=== PATIENT | female | born 1985 | race Caucasian/White ===

== ENCOUNTER 2018-11-25 16:52 | Inpatient (IN) | payer BC, SELFPAY ==
[2018-11-25 15:37] VITALS: BMI 39.2
[2018-11-25 16:22] LABS: Hematocrit 37.5 % (37-47); Hemoglobin 12.8 g/dl (12.0-15.0); Mean Corp Hgb Conc 34.1 g/gl (32-36); Mean Corpuscular Hgb 29.9 pg (27.0-32.0); Mean Corpuscular Volume 87.6 fL (81-99); Mean Platelet Vol. 10.9 fl (6.2-12.0); Platelet Count 156 K/mm3 (150-450); RBC Distribution Width CV 14.2 % (11.6-14.6); RBC Distribution Width SD 45.5 fl (35.1-43.9); Red Blood Count 4.28 M/mm3 (4.2-5.4); White Blood Count 7.8 K/mm3 (4.4-11.0)
[2018-11-25 16:24] LABS: Scan Indicated on CBC? Y/N NO
[2018-11-25 16:25] LABS: Protein, Urine (Random) 20.7 mg/dL (<11.9); Protein:Creat Ratio 113 mg/g CRE (0-200)
[2018-11-25 16:36] LABS: Partial Thromboplast Time 26.8 Seconds (24.1-36.2); Prothrombin Time (Protime)PT. 12.9 SECONDS (11.7-14.9)
[2018-11-25 16:56] LABS: AST(SGOT) 18 U/L (15-37); Alanine Aminotransfer ALT/SGPT 12 U/L (13-56); Creatinine, Serum 0.69 mg/dL (0.55-1.02); EST Glomerular Filtration Rate 104 mL/min (>60); Est Glom Filt Rate - Afr Amer 126 mL/min (>60); Estimated Creatinine Clearance 101.08 ml/min; Uric Acid 3.8 mg/dL (2.6-6.0)
[2018-11-25] MEDS: 0.9% Normal Saline 100 ML IV.SOLN. INTRA-UTER (19:47)
--- NOTE | 2018-11-25 19:54 | HP.PCM_ITS ---
- Problem List (1) Gestational hypertension Status: Acute History Date of Admission: 11/25/18 Final CARITO: 12/07/18 Final CARITO Source: US <20 weeks Gestational age: 38 Weeks and 2 Days History of this : This is a 33 year-old, G 1P0 at 38.2 weeks gestation was seen in the office today noted to have an elevated blood pressure true BP was 138/95. Looking over her record she does have some mildly elevated blood pressures which could be a sign of chronic hypertension however she does not have that diagnosis. Patient was sent to labor and delivery for prolonged monitoring, preeclamptic labs. Blood pressures were still elevated and at this time decision for induction of labor was made. Patient is 1 cm thick and a -3 station. Has headaches, blurry vision, epigastric pain. Allergies acetaminophen [From Tylenol] Adverse Reaction (Verified 11/25/18 15:41) Other ibuprofen [From Motrin] Adverse Reaction (Verified 11/25/18 15:41) Other naproxen [From Aleve] Adverse Reaction (Verified 11/25/18 15:41) Other Home Medications: Home Medications Cod Liver Oil 1 ea PO 11/25/18 Ferrous Gluconate 324 mg PO 11/25/18 Vit No.130/Iron/Folic [ Tablet] 11/25/18 Smoking Status: Never smoker Alcohol: None Number of Fetus(es): 1 Heart Tracin mod jacky + accels, no decels TOCO Analysis: occasional ctx History Past Pregnancies: Past Pregnancies Delivery Date Name GA/Weeks Outcome Route Weight Infant Gender Labor Length Anesthesia Delivery Location Provider FOB Labs: GBS neg, Rub imm, HIV non reactive, HEP B neg, syphilis neg, A+ Expected Delivery Method: Spontaneous Vaginal Review of Systems Eyes: Denies: Blurred vision HEENT: Denies: Head Aches Cardiovascular: Denies: Chest Pain Gastrointestinal: Denies: Abdominal Pain Physical Exam General: Alert, Oriented x3 Abdomen: Soft, Non Tender, Gravid Neurological: Cranial nerves II-XII grossly intact, - - DTR +2. Negative for: Clonus [employer]: Normal external genitalia Estimated gestational size: Appropriate for gestational size Presentation: Cephalic Cervix Dilation (cm): 1 Station: -3 Effacement (%): 50 Assessment/Plan All Active Problems Gestational hypertension (Acute) This is a 33 year-old, G 1P0 at 38.2 weeks gestational hypertension here for labor induction Admit to labor and delivery Monitor heart rate and toco Cytotec with a Moffett bulb Epidural requested for pain control Once her blood pressure will initiate hypertensive protocol if indicated. Attempted Moffett placement however unable to feed the catheter through the cervical eyes. Membranes intact will continue Cytotec overnight and start Pitocin if indicated.
--- NOTE | 2018-11-25 22:06 | PCM.PN.BLA ---
Progress Note Seen at bedside resting comfortably minimal contractions. Reattempt at placement of Moffett catheter transcervically was unsuccessful. Cervix is 1/70%/ -3 . Not able to feed the catheter balloon past the external cervical os. Patient tolerated well. At this time we will continue Cytotec nursing will recheck in approximately 4 hours if making cervical change will start with Pitocin.
[2018-11-25] MEDS: Acetaminophen 325 MG Tablet PO (23:47)
[2018-11-26] MEDS: Lactated Ringers 1,000 ML 50 ML IV ×4 (03:44→14:26)
[2018-11-26] MEDS: 0.9% Saline Lock 10 ML Syringe IV ×2 (03:44→19:35)
[2018-11-26] MEDS: Nalbuphine 10 MG/ML Ampul IV (05:12)
[2018-11-26] MEDS: fentaNYL-bupivacaine (epidural) 100 ML BAG EPIDURAL ×2 (06:45→11:17)
[2018-11-26] MEDS: Oxytocin 30 units/NS 500 ml 30 UNITS/500 ML IV.SOLN IV (07:45)
--- NOTE | 2018-11-26 08:33 | PCM.PN.BLA ---
Progress Note S: Patient comfortable wit epidural O: cvx - 4-5/90/-1 AROM scant clear fluid. FSE & IUPC placed. fhts 120 with minimal to moderate variability, accels tocos ctxs not tracing well A&P: continue pitocin induction Gestational htn - BP's normal
[2018-11-26] MEDS: Oxytocin 30 units/NS 500 ml 30 UNITS/500 ML IV.SOLN 334 UNITS IV (16:40)
--- NOTE | 2018-11-26 17:07 | PCM.OPRPT ---
Vaginal Delivery Maternal Presentation: Medically Indicated Induction Method of Induction: Pitocin, Amniotomy, Cytotec Medical Reason for Induction: Gestational Hypertension Amniotic Membrane Rupture Type: Artificial Amniotic Fluid Description: Clear Final CARITO: 12/07/18 Gestational age: 38 Weeks and 3 Days Date of Procedure: 11/26/18 Pre-Operative Diagnosis: Gestational hypertension Post-Operative Diagnosis: Same Surgery/ Procedure Performed: Spontaneous Vaginal Delivery Type of Anesthesia: Epidural Description of Procedure: Patient prepped & draped in stirrups when c/c/+3. She pushed and delivered the head. The head was gently guided to allow delivery of anterior and posterior shoulders. No excess traction placed on the head. Body delivered & infant placed on maternal abdomen. 3VC clamped & cut in delayed fashion. Placenta delivered with gentle traction. Good uterine tone obtained. Presentation: GUNNAR Placental Delivery Description: Expressed Placenta Disposition: [facility] Cord Vessel Description: 3 Vessels Cord Entanglement: None Drain: Moffett to straight drain Estimated Blood Loss: 350ml Infant A gender: Female (1 minute): 8 (5 minute): 9 Episiotomy Description: None Laceration: Vaginal Extension/lac - repaired with 3-0 vicryl Medications given after delivery: IV Pitocin Complications: None
[2018-11-26] MEDS: Oxytocin 30 units/NS 500 ml 30 UNITS/500 ML IV.SOLN 167 UNITS IV (17:10)
[2018-11-26 19:35] VITALS: BP 144/84; PULSE 88; RESP 18; TEMP 37.2
[2018-11-26] MEDS: Acetaminophen 500 MG Tablet 1000 MG PO (20:39)
[2018-11-26 23:55] VITALS: BP 145/89; PULSE 99; RESP 18; TEMP 36.8
[2018-11-27 03:30] VITALS: BP 145/83; PULSE 86; RESP 18; TEMP 36.9
--- NOTE | 2018-11-27 07:26 | PCM.PN.OB ---
Patient Problems: Active and Suspected Problems Gestational hypertension (Acute) Subjective: No complaints - Physical Exam General: Alert, Oriented x3 Abdomen: Soft, Non Tender, Non-Distended - ff mid & below umb Extremities: No Calf Tenderness Vital Signs Temp Pulse Resp BP 98.5 F 86 18 145/83 H 11/27/18 03:30 11/27/18 03:30 11/27/18 03:30 11/27/18 03:30 Oxygen Delivery Method Room Air Weight: 228 lb 13.437 oz Body Mass Index (BMI) 39.2 Intake and Output for Last 24 Hours 11/25/18 11/26/18 11/27/18 23:59 23:59 23:59 Intake Total 3172 / 3172 Output Total 1442 / 1442 Balance 1730 / 1730 Medical Necessity - Tobacco Use Smoking Status: Never smoker Assessment/Plan All Active Problems Gestational hypertension (Acute) PPD#1 Routine care Heme - HDS, cbc pending. Page with results. Gestational hypertension - BP's 140's/80's. Will monitor.
[2018-11-27 07:48] LABS: Hematocrit 35.5 % (37-47); Hemoglobin 11.8 g/dl (12.0-15.0); Mean Corp Hgb Conc 33.2 g/gl (32-36); Mean Corpuscular Hgb 29.3 pg (27.0-32.0); Mean Corpuscular Volume 88.1 fL (81-99); Mean Platelet Vol. 11.3 fl (6.2-12.0); Platelet Count 147 K/mm3 (150-450); RBC Distribution Width CV 14.5 % (11.6-14.6); RBC Distribution Width SD 45.7 fl (35.1-43.9); Red Blood Count 4.03 M/mm3 (4.2-5.4); White Blood Count 12.2 K/mm3 (4.4-11.0)
[2018-11-27 07:49] LABS: Scan Indicated on CBC? Y/N NO
[2018-11-27 08:00] VITALS: BP 137/84; PULSE 83; RESP 14; TEMP 37.1
[2018-11-27 12:30] VITALS: BP 136/83; PULSE 89; RESP 16; TEMP 36.4
[2018-11-27 16:22] VITALS: BP 144/88; PULSE 89; RESP 16; TEMP 36.8
[2018-11-27 20:15] VITALS: BP 132/83; PULSE 88; RESP 16; TEMP 37.1
[2018-11-28 02:00] VITALS: BP 140/88; PULSE 83; RESP 18; TEMP 36.3
--- NOTE | 2018-11-28 06:00 | PCM.PN.OB ---
Patient Problems: Active and Suspected Problems Gestational hypertension (Acute) Subjective: Pain well controlled, average lochia. Small bowel movement. Urinating without difficulty. - Physical Exam General: Alert, Cooperative, No apparent distress Vital Signs Temp Pulse Resp BP 97.4 F L 83 18 140/88 H 11/28/18 02:00 11/28/18 02:00 11/28/18 02:00 11/28/18 02:00 Oxygen Delivery Method Room Air Weight: 103.8 kg Body Mass Index (BMI) 39.2 Intake and Output for Last 24 Hours 11/26/18 11/27/18 11/28/18 23:59 23:59 23:59 Intake Total 3172 / 3172 Output Total 1442 / 1442 Balance 1730 / 1730 Laboratory Tests Past 24 Hrs 11/27/18 11/27/18 06:05 07:30 WBC 12.2 H Cancelled Corrected WBC Cancelled RBC 4.03 L Cancelled Hgb 11.8 L Cancelled Hct 35.5 L Cancelled MCV 88.1 Cancelled MCH 29.3 Cancelled MCHC 33.2 Cancelled RDW 14.5 Cancelled RDW Differential 45.7 H Cancelled Plt Count 147 L Cancelled MPV 11.[address] Path Review Cancelled Medical Necessity - Tobacco Use Smoking Status: Never smoker Assessment/Plan All Active Problems Gestational hypertension (Acute) day #2 status post vaginal delivery Doing well. Working on breast-feeding. Likely discharge home later today. Routine prescriptions. Follow-up in the office within 1 week for blood pressure check. Call or return for any symptoms of preeclampsia.
--- NOTE | 2018-11-28 06:03 | DCINST_ITS ---
Discharge Diet: No Restrictions Discharge Activity: Return to Normal Activity, May not drive while taking narcotic pain medications., May Shower May resume sexual activity in: 4-6 weeks Additional Activity Instructions:: Nothing in the vagina for 4-6 weeks. You may return to work/school in 6 weeks. Call your doctor if your incision/area has: Continuous Slow Oozing, Sudden Increased Bleeding, Increased Pain/ Swelling, Increased Redness, Foul Smelling Discharge Additional Instructions: If you experience any of the following, contact your healthcare provider. * Bleeding that soaks a pad every hour for 2 hours * Fever 100.4 or higher * Unrelieved incision or abdominal pain * Swelling, redness, discharge or bleeding from your incision or episiotomy site * Your incision begins to separate * Problems urinating (including inability to urinate or burning while urinating). * Visual changes * Severe headache * Flu-like symptoms * Pain or redness in one of both of your breasts * Pain, warmth, tenderness or swelling in your legs, especially the calf area * Frequent nausea and vomiting * Symptoms of depression or anxiety If you experience any of the following, call 911 or go to the nearest Emergency Room. * Chest pain * Problems breathing * Seizure activity * Partial or complete paralysis of a body part, slurred speech, weakness or drooping of the face, or a sudden inability to walk or hold your balance Allergies/Adverse Reactions: Allergies acetaminophen [From Tylenol] Adverse Reaction (Verified 11/25/18 15:41) Other ibuprofen [From Motrin] Adverse Reaction (Verified 11/25/18 15:41) Other naproxen [From Aleve] Adverse Reaction (Verified 11/25/18 15:41) Other Medications to take at Discharge Ferrous Gluconate 324 mg PO 11/25/18 Vit No.130/Iron/Folic [ Tablet] 11/25/18 Ibuprofen [Motrin] 600 mg PO Q6H PRN #60 tab 11/28/18 The following prescriptions were given: Ibuprofen [Motrin] 600 mg PO Q6H PRN #60 tab PRN Reason: Pain Transmission Status: Pending to [id number] Please Follow Up With: Maria Guadalupe Mendez - [phone] When: Call to schedule follow-up in your providers office in 1 week and at 6 weeks. Primary Care Physician: Berry Venegas MD [Primary Care Provider] - Test Results: Test results from this visit will be discussed in further detail at your follow- up appointment, if applicable.
[2018-11-28 08:40] VITALS: BP 130/80; PULSE 96; RESP 18; TEMP 36.8
[2018-11-28 14:25] VITALS: BP 134/80; PULSE 80; RESP 18; TEMP 36.9
== END 2018-11-28 14:35 | disposition home or self-care (01) | DRG 807 ==
LOC: WPOUT 16:53 → WP 17:05
PROVIDERS: Obstetrics & Gynecology; Admitting Provider Obstetrics & Gynecology; Family Provider Family Medicine; PCP Family Medicine; Referring Provider Obstetrics & Gynecology; Visit Provider Obstetrics & Gynecology
DX: O13.4 Gestational [pregnancy-induced] hypertension without significant proteinuria, complicating childbirth (principal); Z37.0 Single live birth; Z3A.38 38 weeks gestation of pregnancy; O70.0 First degree perineal laceration during delivery
CPT/HCPCS: 59025; 59050; 82565; 82570; 84156; 84450; 84460; 84550; 85027; 85610; 85730; 86850; 86900; 99218; J7120; A4216; G0378

== ENCOUNTER 2020-09-07 19:38 | Inpatient (IN) | payer OTHER, SELFPAY ==
[2020-09-07] VITALS (7 sets, daily range): BP systolic 130–142; BP diastolic 80–83; PULSE 87–99; TEMP 36.2–36.4; O2SAT 97–98; BMI 41.1
[2020-09-07] MEDS: 0.9% Saline Lock 10 ML Syringe IV (20:35)
[2020-09-07 20:56] LABS: Absolute Lymphocyte Count 1.43 X10^3/uL (0.83-4.51); Absolute Neutrophil Count 5.8 X10^3/uL (2.0-7.7); Basophil# 0.03 X10^3/uL; Basophil% 0.4 % (0-1); Eosinophil# 0.04 X10^3/uL; Eosinophils% 0.5 % (0-5); Hematocrit 35.6 % (37-47); Hemoglobin 11.7 g/dL (12.0-15.0); Lymphocyte # 1.43 X10^3/ul (0.83-4.51); Mean Corp Hgb Conc 32.9 g/dL (32-36); Mean Corpuscular Hgb 29.5 pg (27.0-32.0); Mean Corpuscular Volume 89.9 fL (81-99); Mean Platelet Vol. 10.7 fl (6.2-12.0); Monocyte# 0.49 X10^3/uL; Monocyte% 6.2 % (0-10); NRBC Flagged by Analyzer 0 % (0-5); Neutrophil # 5.83 X10^3/uL (2.7-7.7); Neutrophil % 73.4 % (47-70); Platelet Count 157 K/mm3 (150-450); RBC Distribution Width CV 13.8 % (11.6-14.6); RBC Distribution Width SD 45.4 fl (35.1-43.9); Red Blood Count 3.96 M/mm3 (4.2-5.4); White Blood Count 7.9 K/mm3 (4.4-11.0)
--- NOTE | 2020-09-07 21:16 | PCM.HP.OB ---
- Problem List (1) 36 to 37 weeks gestation of Status: Acute (2) Gestational hypertension Status: Acute History Date of Admission: 09/07/20 Final CARITO: 09/29/20 Final CARITO Source: US <20 weeks Gestational age: 36 Weeks and 6 Days History of this : This is a 35 year-old, G [2], P [1], at 36.9 weeks gestational age for induction of labor for gestational hypertension. BP in office 140/92. Patient denies any headache, vision changes or RUQ pain. Allergies acetaminophen [From Tylenol] Adverse Reaction (Verified 11/25/18 15:41) Other ibuprofen [From Motrin] Adverse Reaction (Verified 11/25/18 15:41) Other naproxen [From Aleve] Adverse Reaction (Verified 11/25/18 15:41) Other Home Medications: Home Medications Ferrous Gluconate 324 mg PO 11/25/18 Vit No.130/Iron/Folic [ Tablet] 11/25/18 Aspirin 81 mg PO DAILY 09/07/20 Smoking Status: Never smoker Number of Fetus(es): 1 NST - FHR Rate Baby A Baseline: 145 Variability:: Moderate Accelerations:: 15 x 15 Decelerations:: None NST Reactive:: Yes FHR Category:: Category I Uterine Activity:: irritability History Past Pregnancies: Past Pregnancies Delivery Date Name GA/ Weeks Outcome Route Wt Infant Sex Labor Length Anesthesia Delivery Location Provider FOB Labs: A+ Rubella- immune HB- neg HC- neg RPR- NR HIV- NR GC/CH- neg GBS negative [id number] Expected Infant Delivery Method: Spontaneous Vaginal Review of Systems Constitutional: Denies: Chills, Fever, Weight Change HEENT: Denies: Head Aches, Sinus Congestion, Sinus Drainage Cardiovascular: Denies: Chest Pain, Palpitations Respiratory: Denies: Cough, Shortness of breath at rest, Sputum production Gastrointestinal: Denies: Abdominal Pain, Nausea, Vomiting Genitourinary: Denies: Dysuria Musculoskeletal: Denies: Joint Pain, Joint Tenderness Skin: Denies: Rash, Wounds Physical Exam Vitals: Vital Signs Temp Pulse BP Pulse Ox 97.5 F L 98 130/81 H 97 09/07/20 20:21 09/07/20 20:23 09/07/20 20:23 09/07/20 20:22 General: Alert, Oriented x3, Cooperative HEENT: Atraumatic Cardiovascular: Regular rate Lungs: Normal air movement Abdomen: Soft, Non Tender, Gravid Neurological: Cranial nerves II-XII grossly intact Assessment/Plan All Active Problems Gestational hypertension (Acute) 36 to 37 weeks gestation of (Acute) This is a 35 year-old, G [2], P [1], at 36.9 weeks gestational age for induction of labor for gestational hypertension. Admit to labor and delivery Routine labs IV fluids per policy Start Cytotec 25 mcg PO every 4 hours- CE prior to each dose BP every hour Hypertension protocol if needed Dr. Perea notified of admission and is collaborating physician
[2020-09-07] MEDS: miSOPROStol 25 MCG TABLET PO (21:30)
[2020-09-08] VITALS (55 sets, daily range): BP systolic 99–166; BP diastolic 58–98; PULSE 86–109; TEMP 36.1–37.4; O2SAT 96–100
[2020-09-08] MEDS: miSOPROStol 25 MCG TABLET PO ×2 (01:38→05:45)
--- NOTE | 2020-09-08 08:43 | PCM.PN.BLA ---
Progress Note S: Patient feels some ctxs O: cvx - 2/50/-3 AROM clear fluid fhts 130 with mod variability, accels tocos Q3-4 min A&P: start pitocin at 9:30am gestational hypertension - BP's reviewed STROKE Vital Signs/Narrative: Vital Signs Temp Pulse BP Pulse Ox 09/08/20 07:24 95 129/86 H 09/08/20 06:39 97.4 F L 95 135/81 H 98 09/08/20 05:37 96 133/92 H
[2020-09-08] MEDS: Oxytocin 30 units/NS 500 ml 30 UNITS/500 ML IV.SOLN IV (09:52)
[2020-09-08] MEDS: Lactated Ringers 1,000 ML 50 ML IV ×2 (09:52→12:26)
[2020-09-08] MEDS: Lactated Ringers 500 ML 999 ML IV (15:48)
[2020-09-08] MEDS: fentaNYL-bupivacaine (epidural) 100 ML BAG EPIDURAL ×2 (16:35→21:25)
[2020-09-08] MEDS: Lactated Ringers 1,000 ML 200 ML IV ×2 (17:22→22:02)
[2020-09-08] MEDS: Amnioinfusion- 0.9% NS 1,000 ML IV.SOLN. 100 ML INTRA-UTER (23:48)
[2020-09-09] VITALS (26 sets, daily range): BP systolic 114–141; BP diastolic 62–101; PULSE 90–116; RESP 16–18; TEMP 36.3–37.3; O2SAT 97–100
[2020-09-09] MEDS: Oxytocin 30 units/NS 500 ml 30 UNITS/500 ML IV.SOLN 334 UNITS IV (00:16)
--- NOTE | 2020-09-09 00:41 | PCM.OPRPT ---
Vaginal Delivery Maternal Presentation: Medically Indicated Induction Method of Induction: Cervidil, Pitocin, Amniotomy Medical Reason for Induction: Gestational Hypertension Amniotic Membrane Rupture Type: Artificial Amniotic Fluid Description: Clear Final CARITO: 09/29/20 Gestational age: 37 Weeks and 1 Days Date of Procedure: 09/09/20 Pre-Operative Diagnosis: Gestational hypertension Post-Operative Diagnosis: Same Surgery/ Procedure Performed: Spontaneous Vaginal Delivery Type of Anesthesia: Epidural Description of Procedure: Patient prepped & draped in stirrups when C/C/0. She pushed well to deliver the head. Shoulders & body delivered easily through moderately tight nuchal cord. placed on maternal abdomen where 3VC clamped & cut in delayed fashion. Placenta delivered with gentle traction & good uterine tone obtained. Presentation: Vertex - direct OA Placental Delivery Description: Expressed Placenta Disposition: [facility] Cord Vessel Description: 3 Vessels Nuchal Cord Compression: With compression Cord Entanglement: Around neck x 1, tight - moderately as able to deliver through Estimated Blood Loss: 250ml A gender: Female - Cervantes Billie (1 minute): 8 (5 minute): 8 Episiotomy Description: None Laceration: 1st degree - vaginal - repaired with 3-0 vicryl Medications given after delivery: IV Pitocin Complications: None
--- NOTE | 2020-09-09 08:04 | PCM.PN.OB ---
Patient Problems: Active and Suspected Problems Gestational hypertension (Acute) 36 to 37 weeks gestation of (Acute) Subjective: Denies complaints - Physical Exam Vitals/I&O's: Vital Signs Temp Pulse Resp BP Pulse Ox 97.8 F 104 H 16 134/92 H 97 09/09/20 07:47 09/09/20 07:47 09/09/20 07:47 09/09/20 07:47 09/09/20 04:30 Oxygen Delivery Method Room Air Weight: 239 lb 4 oz Body Mass Index (BMI) 41.1 Intake and Output for Last 24 Hours 09/07/20 09/08/20 09/09/20 23:59 23:59 23:59 Intake Total 1929.99 / 1929.99 1081.67 / 1081.67 Output Total 600 / 600 875 / 875 Balance 1329.99 / 1329.99 206.67 / 206.67 General: Alert, Oriented x3 Abdomen: Soft - ff mid & below umb, Non Tender, Non-Distended Extremities: No Calf Tenderness Microbiology Past 72 Hours 09/07/20 20:45 Mucosa - Nose SARS-CoV-2 Antigen (Rapid) - Final Current Medications Acetaminophen (Acetaminophen 500 Mg Tablet) 1,000 mg PO Q8H PRN PRN PRN Reason: Pain Score 1-3 Bisacodyl (Bisacodyl 10 Mg Suppository) 10 mg RC UD PRN PRN Reason: If no BM Dibucaine (Dibucaine 30 Gm Tube) 1 applic TOPICAL TID PRN PRN; Protocol PRN Reason: Discomfort Hydrocortisone (Hydrocortisone 2.5% Crm) 1 applic TOPICAL TID PRN PRN; Protocol PRN Reason: Discomfort Ibuprofen (Ibuprofen 600 Mg Tablet) 600 mg PO Q6H PRN PRN PRN Reason: Pain Score 1-3 Methylergonovine Maleate (Methylergonovine 0.2 Mg/Ml Ampul) 0.2 mg IM X1 PRN PRN Reason: Excess bleeding/uterine atony Ondansetron HCl (Ondansetron 4 Mg/2 Ml Vial) 4 mg IV Q4H PRN PRN PRN Reason: Nausea Oxycodone HCl (Oxycodone 5 Mg Tablet) 5 - 10 mg PO Q4H PRN PRN PRN Reason: Pain Score 4-10 Senna/Docusate Sodium (Senna/Docusate Sodium 1 Tablet) 1 - 2 tablet PO DAILY PRN PRN PRN Reason: Constipation Simethicone (Simethicone 80 Mg Tablet) 80 mg PO PCHS PRN PRN Reason: Indigestion/Stomach pain Sodium Chloride (0.9% Saline Lock 10 Ml Syringe) 5 - 15 ml IV UD PRN PRN Reason: SALINE FLUSH Medical Necessity - Tobacco Use Smoking Status: Never smoker Assessment/Plan All Active Problems Gestational hypertension (Acute) 36 to 37 weeks gestation of (Acute) PPD#0 Routine care Gestational hypertension - BP's reviewed & overall normal
[2020-09-10] VITALS (8 sets, daily range): BP systolic 127–135; BP diastolic 75–86; PULSE 82–90; RESP 16–18; TEMP 36.2–36.6
--- NOTE | 2020-09-10 12:10 | PCM.PN.OB ---
Patient Problems: Active and Suspected Problems Gestational hypertension (Acute) 36 to 37 weeks gestation of (Acute) Subjective: No complaints - Physical Exam Vitals/I&O's: Vital Signs Temp Pulse Resp BP Pulse Ox 97.2 F L 88 16 129/82 H 97 09/10/20 07:32 09/10/20 07:32 09/10/20 07:32 09/10/20 07:32 09/09/20 04:30 Oxygen Delivery Method Room Air Weight: 239 lb 4 oz Body Mass Index (BMI) 41.1 Intake and Output for Last 24 Hours 09/08/20 09/09/20 09/10/20 23:59 23:59 23:59 Intake Total 1929.99 / 1929.99 1081.67 / 1081.67 Output Total 600 / 600 875 / 875 Balance 1329.99 / 1329.99 206.67 / 206.67 General: Alert, Oriented x3 Abdomen: Soft, Non Tender, Non-Distended - ff mid & below umb Extremities: No Calf Tenderness Microbiology Past 72 Hours 09/07/20 20:45 Mucosa - Nose SARS-CoV-2 Antigen (Rapid) - Final Current Medications Acetaminophen (Acetaminophen 500 Mg Tablet) 1,000 mg PO Q8H PRN PRN PRN Reason: Pain Score 1-3 Bisacodyl (Bisacodyl 10 Mg Suppository) 10 mg RC UD PRN PRN Reason: If no BM Dibucaine (Dibucaine 30 Gm Tube) 1 applic TOPICAL TID PRN PRN; Protocol PRN Reason: Discomfort Hydrocortisone (Hydrocortisone 2.5% Crm) 1 applic TOPICAL TID PRN PRN; Protocol PRN Reason: Discomfort Ibuprofen (Ibuprofen 600 Mg Tablet) 600 mg PO Q6H PRN PRN PRN Reason: Pain Score 1-3 Methylergonovine Maleate (Methylergonovine 0.2 Mg/Ml Ampul) 0.2 mg IM X1 PRN PRN Reason: Excess bleeding/uterine atony Ondansetron HCl (Ondansetron 4 Mg/2 Ml Vial) 4 mg IV Q4H PRN PRN PRN Reason: Nausea Oxycodone HCl (Oxycodone 5 Mg Tablet) 5 - 10 mg PO Q4H PRN PRN PRN Reason: Pain Score 4-10 Senna/Docusate Sodium (Senna/Docusate Sodium 1 Tablet) 1 - 2 tablet PO DAILY PRN PRN PRN Reason: Constipation Simethicone (Simethicone 80 Mg Tablet) 80 mg PO PCHS PRN PRN Reason: Indigestion/Stomach pain Sodium Chloride (0.9% Saline Lock 10 Ml Syringe) 5 - 15 ml IV UD PRN PRN Reason: SALINE FLUSH Medical Necessity - Tobacco Use Smoking Status: Never smoker Assessment/Plan All Active Problems Gestational hypertension (Acute) 36 to 37 weeks gestation of (Acute) PPD#1 D/c home Gestational hypertension - BP's normal to mildly elevated times. Patient will check BP home & f/u in office later this week. Reviewed BP & preE precautions.
--- NOTE | 2020-09-10 12:12 | DCINST_ITS ---
Discharge Diet: No Restrictions Discharge Activity: May Drive, May Shower May resume sexual activity in: 6 weeks Additional Instructions: If you experience any of the following, contact your healthcare provider. * Bleeding that soaks a pad every hour for 2 hours * Fever 100.4 or higher * Unrelieved incision or abdominal pain * Swelling, redness, discharge or bleeding from your incision or episiotomy site * Your incision begins to separate * Problems urinating (including inability to urinate or burning while urinating). * Visual changes * Severe headache * Flu-like symptoms * Pain or redness in one of both of your breasts * Pain, warmth, tenderness or swelling in your legs, especially the calf area * Frequent nausea and vomiting * Symptoms of depression or anxiety If you experience any of the following, call 911 or go to the nearest Emergency Room. * Chest pain * Problems breathing * Seizure activity * Partial or complete paralysis of a body part, slurred speech, weakness or drooping of the face, or a sudden inability to walk or hold your balance Allergies/Adverse Reactions: Allergies acetaminophen [From Tylenol] Adverse Reaction (Verified 09/07/20 21:43) Other erythemia nodosum ibuprofen [From Motrin] Adverse Reaction (Verified 09/07/20 21:43) Other erythemia nodosum naproxen [From Aleve] Adverse Reaction (Verified 09/07/20 21:43) Other erythemia nodosum Medications to take at Discharge Vit No.130/Iron/Folic [ Tablet] 1 tab PO DAILY 11/25/18 Acetaminophen [Tylenol] 1,000 mg PO Q8H PRN PRN tablet 09/10/20 Ibuprofen [Motrin] 600 mg PO Q6H PRN PRN tablet 09/10/20 Please Follow Up With: Maria Guadalupe Mendez MD When: within 1 week Primary Care Physician: Berry Venegas MD [Primary Care Provider] - Test Results: Test results from this visit will be discussed in further detail at your follow- up appointment, if applicable.
--- NOTE | 2020-09-10 12:12 | PCM.DCVAG ---
Discharge Diet: No Restrictions Discharge Activity: May Drive, May Shower May resume sexual activity in: 6 weeks Additional Instructions: If you experience any of the following, contact your healthcare provider. Bleeding that soaks a pad every hour for 2 hours Fever 100.4 or higher Unrelieved incision or abdominal pain Swelling, redness, discharge or bleeding from your incision or episiotomy site Your incision begins to separate Problems urinating (including inability to urinate or burning while urinating). Visual changes Severe headache Flu-like symptoms Pain or redness in one of both of your breasts Pain, warmth, tenderness or swelling in your legs, especially the calf area Frequent nausea and vomiting Symptoms of depression or anxiety If you experience any of the following, call 911 or go to the nearest Emergency Room. Chest pain Problems breathing Seizure activity Partial or complete paralysis of a body part, slurred speech, weakness or drooping of the face, or a sudden inability to walk or hold your balance Allergies/Adverse Reactions: Allergies acetaminophen [From Tylenol] Adverse Reaction (Verified 09/07/20 21:43) Other erythemia nodosum ibuprofen [From Motrin] Adverse Reaction (Verified 09/07/20 21:43) Other erythemia nodosum naproxen [From Aleve] Adverse Reaction (Verified 09/07/20 21:43) Other erythemia nodosum Medications to take at Discharge Vit No.130/Iron/Folic [ Tablet] 1 tab PO DAILY 11/25/18 Acetaminophen [Tylenol] 1,000 mg PO Q8H PRN PRN tablet 09/10/20 Ibuprofen [Motrin] 600 mg PO Q6H PRN PRN tablet 09/10/20 Please Follow Up With: Maria Guadalupe Mendez MD When: within 1 week Primary Care Physician: Berry Venegas MD [Primary Care Provider] - Test Results: Test results from this visit will be discussed in further detail at your follow-up appointment, if applicable.
== END 2020-09-10 14:40 | disposition home or self-care (01) | DRG 807 ==
PROVIDERS: Admitting Provider Advanced Practice Midwife; PCP Family Medicine; Visit Provider Obstetrics & Gynecology
DX: O13.4 Gestational [pregnancy-induced] hypertension without significant proteinuria, complicating childbirth (principal); Z37.0 Single live birth; Z3A.37 37 weeks gestation of pregnancy; O69.1XX0 Labor and delivery complicated by cord around neck, with compression, not applicable or unspecified; O70.0 First degree perineal laceration during delivery
CPT/HCPCS: 59025; 59050; 85025; 86850; 86900; 86901; 87426; 99218; J7030; J7120; A4216; G0378

== ENCOUNTER 2020-11-02 12:56 | Emergency (ER) | payer OTHER, SELFPAY ==
[2020-09-07 20:57] VITALS: BMI 41.1
[2020-11-02 12:57] VITALS: BP 155/106; PULSE 71; RESP 14; TEMP 36.6; O2SAT 100; BMI 35.9
--- NOTE | 2020-11-02 13:26 | US_ITS ---
STUDY: ABDOMINAL ULTRASOUND - RIGHT UPPER QUADRANT REASON FOR VISIT: Female, 35 years old PAIN RUQ TO MIDLINE ABDOMEN PAIN TECHNIQUE: Ultrasound evaluation of the right upper quadrant was performed with real-time and static maravilla-scale imaging. TECHNICAL QUALITY: Adequate. COMPARISON: None. FINDINGS: Liver: The liver measures 17.2 cm. There is increased echogenicity consistent with fatty infiltration. The bile ducts are within normal limits. There is hepatic color flow. The direction of portal flow is hepatopetal. There is no demonstrated mass lesion. Gallbladder: Normal distended gallbladder. The gallbladder wall measures 2.2 mm. There is a negative sonographic Andre''s sign. There is pericholecystic fluid. There are multiple echogenic structures within the gallbladder, consistent with multiple gallstones. Common Bile Duct (C.B.D.): The common bile duct measures 4.7 mm. A small stone is seen within the common bile duct. Pancreas: Normal size of the head, body and tail of the pancreas. There is normal echogenicity of the pancreas. There is no demonstrated pancreatic mass or cyst. Right Kidney: Normal size of the right kidney. The right kidney measures 10.2 cm x 5.9 cm x 4.5 cm. Normal renal cortex. The right cortex measures 1.2 cm. There is no demonstrated renal mass or cyst. There is no right hydronephrosis. US/Gallbladder IMPRESSION: Multiple gallstones. Minimal amount of pericholecystic fluid. Small calculus suspected in the common bile duct. Fatty infiltration of the liver. Electronically Signed: Toro Patrick MD at 15:05 EDT , Service support ,
--- NOTE | 2020-11-02 13:28 | RAD_ITS ---
STUDY: X-RAY CHEST REASON FOR EXAM: Female, 35 years old. Chest pain TECHNIQUE: Single AP portable view of the chest. COMPARISON: None. FINDINGS: EKG electrodes are seen. The lungs are clear and expanded. There is no demonstrated pleural abnormality. Normal size heart. Normal mediastinum and hemanth. Normal visualized pulmonary arteries. Normal visualized aortic arch and descending thoracic aorta. Normal visualized thoracic spine. Normal visualized ribs, clavicles, and shoulders. There is no demonstrated abnormality of the visualized soft tissue structures of the upper abdomen. RAD/Chest 1 View (Portable) IMPRESSION: Normal x-ray examination of the chest. Electronically Signed: Toro Patrick MD at 14:44 EDT , Service support ,
--- NOTE | 2020-11-02 13:28 | EDS_ITS ---
HPI HPI - GI History of Present Illness Chief Complaint: Abd Pain Informant: patient Abdominal Pain/Flank Pain Onset: Days (4) Context: Gradual Onset Timing: Intermittent, Lasts (today has lasted 8-10 hrs without letting up) and Waxes and wanes Quality: Aching Location: RUQ (Radiating up mid chest and into mid upper back) Current Severity: Severe Maximum Severity: Severe Worsened by: - (Lying on right side otherwise unchanged by anything) Relieved by: Nothing Nausea/Vomiting/Emesis GI Symptom: Positive for Nausea; Negative for Vomiting Diarrhea/Melena/Hematochezia GI Symptom: Negative for Diarrhea, Melena and Hematochezia Associated Symptoms Associated Symptoms: Negative for Dysuria, Frequency, Hematuria and Urgency Narrative Narrative: Patient had similar episode of abdominal pain several days ago saw her PCP, gallbladder issues were suspected so an ultrasound was ordered but is not able to be obtained for another week and now the patient is having recurrent symptoms that are persistent all morning along with nausea, no vomiting or jaundice/itching. No fever/chills. No melena, no urinary symptoms. Pain radiates into her thorax no dyspnea, palpitations, near syncope. No recent cough or fevers/chills. No history of Covid, she has not been vaccinated. She has a 7-week-old baby girl and has been breast-feeding her. [facility] Medical History (Updated 11/02/20 @ 16:[address] Neno Neri MD) Gestational [-induced] hypertension without significant proteinuria, unspecified trimester Hx of lymphadenopathy no medical history Home Medications vit no.[id number] 1 tab PO DAILY 11/25/18 [History Last Taken 09/07/20 08:00] hydrocodone-acetaminophen 1 tab PO Q6H PRN 2 Days #12 tab 11/02/20 [Rx Last Taken Unknown] Allergy/AdvReac Type Severity Reaction Status Date / Time acetaminophen [From Tylenol] Allergy Other Verified 11/02/20 13:56 ibuprofen [From Motrin] Allergy Other Verified 11/02/20 13:56 naproxen [From Aleve] Allergy Other Verified 11/02/20 13:56 Social History Smoking Status: Never smoker ROS ROS ED Constitutional Constitutional ED: Denies chills or fever(s) Eyes Eyes: Denies change in vision or diplopia ENT ENT ED: Denies rhinorrhea or sore throat Cardiovascular Cardiovascular: Reports chest pain; Denies palpitations Respiratory/Chest Respiratory/Chest: Denies cough or dyspnea Gastrointestinal Gastrointestinal: Reports as per HPI, abdominal pain and nausea; Denies diarrhea or vomiting Genitourinary Genitourinary ED: Denies dysuria or hematuria Musculoskeletal Musculoskeletal: Reports as per HPI and back pain; Denies neck pain Integumentary Denies abscess or rash Neurologic Neurologic: Denies headache(s), paresthesias or weakness Psychiatric Psychiatric: Denies anxiety or suicidal thoughts EXAM Physical Exam Const Vital Signs: 11/02/20 12:57 11/02/20 13:52 11/02/20 15:15 Temperature 97.9 F Temperature Source Temporal Pulse Rate 71 68 76 Respiratory Rate 14 12 97 H Blood Pressure 155/106 H 123/79 H Blood Pressure Mean 122 93 Pulse Ox 100 99 Oxygen Delivery Method Room Air Room Air Room Air Positive well nourished and well developed Constitutional Narrative: Kneeling on floor, bent over side of bed uncomfortable General Appearance ED: well developed and NAD HEENT Reports moist mucous membranes normocephalic and atraumatic Eyes PERRL and EOMs intact bilaterally Neck full ROM and supple Resp normal respiratory effort and clear to auscultation bilaterally Cardio regular rate, regular rhythm and no murmurs GI non-distended GI Narrative: Tender right upper quadrant, medially almost in epigastrium. No other areas of tenderness. Auscultation: normoactive bowel sounds Palpation: soft and tender Andre's sign Back/Spine no CVA tenderness General Back: other FROM Extremity normal to inspection General Extremety ED: Negative for edema, pulses abnormal or tenderness General Extremity: Negative for edema or pulses abnormal Neuro oriented x3, CN's II-XII intact bilaterally and no sensory deficits noted Sensorium / Orientation: awake and alert Motor Exam: strength 5/5 throughout Skin no rashes or lesions noted and no wounds MDM MDM MDM Narrative Medical decision making narrative: We did discuss medications for symptoms given she is , she is OK with this and pumping/dumping. After Toradol and morphine, patient is feeling much better and on reexamination is minimally tender with a negative Andre. Test results are noted as below. No leukocytosis, hyperbilirubinemia, or other liver enzyme elevation. negative. Ultrasound showing cholelithiasis along with a small amount of pericholecystic fluid but no other hard signs of acute cholecystitis. Discussed with Dr. Keith on for surgery who offered admission but the patient declines and is comfortable following up, will see her at 1400 tomorrow. Offered prescription for [place] to use as needed and we discussed reasons to return, and she understands that if she uses the medication she needs to pump and dump breastmilk for the next 4-6 hours. Lab Data Attestation: I reviewed the patient's lab results. Labs: Laboratory Results - last 24 hr 11/02/20 11/02/20 11/02/20 13:40 13:40 15:15 WBC 9.1 RBC 5.27 Hgb 14.7 Hct 45.0 MCV 85.4 MCH 27.9 MCHC 32.7 RDW Std Deviation 40.1 RDW Coeff of Romario 12.8 Plt Count 201 MPV 10.0 Immature Gran % (Auto) 0.400 Neut % (Auto) 81.2 H Lymph % (Auto) 11.7 L Allen % (Auto) 5.8 Eos % (Auto) 0.3 Baso % (Auto) 0.6 Absolute Neuts (auto) 7.4 Absolute Lymphs (auto) 1.06 Nucleated RBC % 0 Sodium 139 Potassium 3.8 Chloride 104 Carbon Dioxide 26.0 Anion Gap 9 BUN 11 Creatinine 0.92 Estim Creat Clear Calc 74.40 Est GFR (MDRD) Af Amer 90 Est GFR (MDRD) Non-Af 74 BUN/Creatinine Ratio 12.0 Glucose 110 H Calcium 9.5 Total Bilirubin 0.60 AST 24 ALT 35 Alkaline Phosphatase 85 Troponin I < 0.015 Total Protein 7.8 Albumin 4.4 Globulin 3.4 Albumin/Globulin Ratio 1.3 Lipase 81 Urine Color Urine Clarity Urine pH Ur Specific [place] Urine Protein Urine Glucose (UA) Urine Ketones Urine Occult Blood Urine Nitrite Urine Bilirubin Urine Urobilinogen Ur Leukocyte Esterase Urine RBC Urine WBC Ur Squamous Epith Cells Urine Bacteria Urine Mucus Urine Test Negative 11/02/20 15:15 WBC RBC Hgb Hct MCV MCH MCHC RDW Std Deviation RDW Coeff of Romario Plt Count MPV Immature Gran % (Auto) Neut % (Auto) Lymph % (Auto) Allen % (Auto) Eos % (Auto) Baso % (Auto) Absolute Neuts (auto) Absolute Lymphs (auto) Nucleated RBC % Sodium Potassium Chloride Carbon Dioxide Anion Gap BUN Creatinine Estim Creat Clear Calc Est GFR (MDRD) Af Amer Est GFR (MDRD) Non-Af BUN/Creatinine Ratio Glucose Calcium Total Bilirubin AST ALT Alkaline Phosphatase Troponin I Total Protein Albumin Globulin Albumin/Globulin Ratio Lipase Urine Color Yellow Urine Clarity Sl. Cloudy Urine pH 7.0 Ur Specific [place] 1.005 Urine Protein Negative Urine Glucose (UA) Normal Urine Ketones Negative Urine Occult Blood Negative Urine Nitrite Negative Urine Bilirubin Negative Urine Urobilinogen Normal Ur Leukocyte Esterase Negative Urine RBC 0 SEEN Urine WBC 0 SEEN Ur Squamous Epith Cells 0-5 SEEN Urine Bacteria 0 SEEN Urine Mucus 0 SEEN Urine Test Radiography Diagnostic Testing: Radiology Impression Gallbladder Ultrasound 11/02/20 13:26 IMPRESSION: Multiple gallstones. Minimal amount of pericholecystic fluid. Small calculus suspected in the common bile duct. Fatty infiltration of the liver. Electronically Signed: Toro Patrick MD at 15:05 EDT , Service support , Chest X-Ray 11/02/20 13:28 IMPRESSION: Normal x-ray examination of the chest. Electronically Signed: Toro Patrick MD at 14:44 EDT , Service support , EKG Initial EKG: Attestation: I personally reviewed and interpreted this EKG as follows: Interpretation: Sinus Rhythm and No Acute Injury Pattern Comments: normal EKG Discharge Plan Triage Chief Complaint: Abd Pain ED Provider: Neno Neri Dx/Rx/DC Orders Clinical Impression: Biliary colic, Cholelithiasis Instructions: ED Gallstones with Biliary Colic Prescriptions: New hydrocodone-acetaminophen 5-325 mg tablet 1 tab PO Q6H PRN (Reason: pain) 2 Days Qty: 12 RF: 0 No Action vit no.[id number] 1 EACH tablet 1 tab PO DAILY RF: 0 Primary Care Provider: Berry Venegas Referrals: Berry Venegas MD [Primary Care Provider] - Keara Keith MD [STAFF PHYSICIAN] - 11/03/20 2:00 pm Disposition Disposition: Home, self care
--- NOTE | 2020-11-02 13:28 | EKG12_ITS ---
Test Reason : ABNL PAIN Blood Pressure : / mmHG Vent. Rate : 059 BPM Atrial Rate : 059 BPM P-R Int : 128 ms QRS Dur : 084 ms QT Int : 412 ms P-R-T Axes : 017 033 031 degrees QTc Int : 407 ms Sinus bradycardia with sinus arrhythmia Otherwise normal ECG Confirmed by CHRISTI HYATT, DANIEL ([id number]), metropolitan editor JULIANA RIOS ([id number]) on 11/06/2020 10:59:22 A M Referred By: GLEN Confirmed By:DAVID BARRAZA MD
[2020-11-02] MEDS: Ondansetron 4 MG/2 ML Vial IV (13:46)
[2020-11-02] MEDS: Ketorolac 15 MG/ML Vial IV (13:47)
[2020-11-02 13:48] LABS: Absolute Lymphocyte Count 1.06 X10^3/uL (0.83-4.51); Absolute Neutrophil Count 7.4 X10^3/uL (2.0-7.7); Basophil# 0.05 X10^3/uL; Basophil% 0.6 % (0-1); Eosinophil# 0.03 X10^3/uL; Eosinophils% 0.3 % (0-5); Hemoglobin 14.7 g/dL (12.0-15.0); Lymphocyte # 1.06 X10^3/ul (0.83-4.51); Lymphocyte % 11.7 % (19-41); Mean Corp Hgb Conc 32.7 g/dL (32-36); Mean Corpuscular Hgb 27.9 pg (27.0-32.0); Mean Corpuscular Volume 85.4 fL (81-99); Monocyte# 0.53 X10^3/uL; Monocyte% 5.8 % (0-10); NRBC Flagged by Analyzer 0 % (0-5); Neutrophil # 7.38 X10^3/uL (2.7-7.7); Neutrophil % 81.2 % (47-70); Platelet Count 201 K/mm3 (150-450); RBC Distribution Width CV 12.8 % (11.6-14.6); RBC Distribution Width SD 40.1 fl (35.1-43.9); Red Blood Count 5.27 M/mm3 (4.2-5.4); White Blood Count 9.1 K/mm3 (4.4-11.0)
[2020-11-02] MEDS: Morphine 4 MG/ML Syringe IV (13:49)
[2020-11-02] MEDS: 0.9% Normal Saline 1,000 ML 125 ML IV (13:51)
[2020-11-02 13:52] VITALS: PULSE 68; RESP 12; O2SAT 99
[2020-11-02 14:05] LABS: ALB/GLOB Ratio 1.3 RATIO (0.9-2.4); AST(SGOT) 24 U/L (15-37); Alanine Aminotransfer ALT/SGPT 35 U/L (13-56); Albumin, Serum 4.4 g/dL (3.2-5.0); Alkaline Phosphatase 85 U/L (45-117); Anion Gap 9 (5-15); BUN 11 mg/dL (7-18); Calcium,Total 9.5 mg/dL (8.5-10.1); Chloride 104 mmol/L (98-107); Creatinine, Serum 0.92 mg/dL (0.55-1.02); EST Glomerular Filtration Rate 74 mL/min (>60); Est Glom Filt Rate - Afr Amer 90 mL/min (>60); Globulin 3.4 g/dL (2.2-4.2); Glucose 110 mg/dL (74-106); Lipase 81 U/L (73-393); Potassium 3.8 mmol/L (3.5-5.1); Protein, Total 7.8 g/dL (6.4-8.2); Sodium Level 139 mmol/L (136-145)
[2020-11-02 15:15] VITALS: BP 123/79; PULSE 76; RESP 97
[2020-11-02 15:21] LABS: Bacteria 0 SEEN /hpf (None Seen); Mucous, Urine 0 SEEN /hpf (<or=2+); Red Blood Cells-Urine 0 SEEN /hpf (0-5); White Blood Cells 0 SEEN /hpf (0-5)
[2020-11-02 15:40] LABS: Color, Urine Yellow (Yellow); Glucose, Dipstick Normal (Normal); Ketone-Dipstick Negative (Negative); Leukocyte Esterase-Dipstick Negative /ul (Negative); Nitrite-Dipstick Negative (Negative); Occult Blood-Urine Negative /ul (Negative); Protein-Dipstick Negative (Negative); Specific Gravity, Urine 1.005 (1.002-1.030); Urine Bilirubin Dipstick Negative (Negative); Urine Clarity Sl. Cloudy (Clear); Urine Urobilinogen Normal (Normal)
[2020-11-02 15:42] LABS: Internal QC Validated? YES +Cl - CLEAR BKGD; Pregnancy, Urine Negative Negative
[2020-11-02 15:57] LABS: Squamous Epithelial Cells - UA 0-5 SEEN /hpf (5-10)
[2020-11-02 16:32] VITALS: BP 126/76; PULSE 71; RESP 16; O2SAT 100
--- NOTE | 2020-11-02 16:32 | ED.RN ---
THIS NURSE REVIEWED D/C INSTRUCTIONS WITH PT. PT VERBALIZED UNDERSTANDING OF INSTRUCTIONS. IV D/C. IV CATHETER INTACT. PT TOLERATED WELL. PT DENIES FURTHER NEEDS OR QUESTIONS AT THIS TIME
== END 2020-11-02 16:34 | disposition home or self-care (01) ==
PROVIDERS: Emergency Provider Emergency Medicine; PCP Family Medicine
DX: K80.70 Calculus of gallbladder and bile duct without cholecystitis without obstruction (principal)
CPT/HCPCS: 71045; 76705; 80053; 81001; 81025; 83690; 84484; 85025; 93005; 96361; 96374; 96375; 99283; J7030; A4216; J2405

== ENCOUNTER 2020-11-07 12:38 | Day surgery (SDC) | payer OTHER, SELFPAY ==
--- NOTE | 2020-11-05 20:29 | PCM.HP.BLA ---
History and Physical Date of Admission: 11/07/20 Sindhu Núñez 1985 ?? REFERRING PHYSICIAN: MD Brendon ? CHIEF COMPLAINT: Consult (Consult Gallbladder) ? HPI: The patient is a 35 year old female with a complaint of abdominal pain for the past 4-5 days. She was seen at [facility] ED yesterday for more prolonged and severe pain. She denies fevers. She had accompanying symptoms of nausea and emesis. She feels much improved presently. Patient is currently breast feeding. She has not had COVID vaccine. Work up at [facility] ED - She had a normal WBC with no left shift at [facility] ED and her LFTs were normal. [facility] gallbladder US (from [facility] records) - impression: multiple gallstones. Minimal amount of pericholecystic fluid. Small calculus suspect in the common bile duct. Fatty infiltration of the liver ? ? PAST MEDICAL HISTORY ? Asthma ? ? Seasonal allergies ? ? PAST SURGICAL HISTORY ? PAST SURGICAL HISTORY OF ? ? ? right ring finger, fracture with pins placed ? REMOVAL LYMPH NODES, NECK ? 1999 ? ? Current Outpatient Medications ? oxyCODONE ir (OXYIR) 5 mg capsule Take 1 capsule by mouth every 8 hours as needed for pain. ? 95-iron ija-olqav-jps ( + DHA) 28 mg iron-800 mcg-200 mg cmpk Take 1 tablet by mouth once daily. ? ferrous sulfate (IRON ORAL) Take by mouth. ? Lysine (L-LYSINE) 500 mg tab Take by mouth. ? albuterol sulfate (VENTOLIN INHALATION) Inhale as instructed. ? ? ALLERGIES: Nsaids (Non-Steroidal Anti-Inflammatory Drug) and Seasonal Allergies ? PERSONAL HISTORY: ? Smoking status: Never Smoker ? Smokeless tobacco: Never Used Vaping Use ? Vaping Use: Never used Substance Use Topics ? Alcohol use: No ? Drug use: No ? FAMILY HISTORY ? Breast Cancer Mother 54 ? No Known Problems Father ? ? No Known Problems Brother ? ? No Known Problems Sister ? ? Glaucoma Maternal Grandmother ? ? other (benign growth on neck) Maternal Grandfather ? ? Cancer Paternal Grandmother ? ? brain cancer ? No Known Problems Paternal Grandfather ? ? REVIEW OF SYSTEMS: General: The patient denies fatigue, denies weight loss, denies weight gain, denies feeling hot, and denies feelings of cold. Eyes: The patient denies glaucoma, denies eye injury/surgery, wears glasses or contacts. Ear/Nose/Throat: The patient NOTES allergies, denies hayfever, NOTES ear infections, and denies bloody noses. Cardiovascular: The patient NOTES chest pain, denies heart disease, NOTES high blood pressure,denies cardiac stent, denies prior heart attack, denies irregular heart beat, denies high cholesterol, denies poor circulation, denies heart failure, other cardiac issues, denies claudication, denies cold feet, denies peripheral arterial stent. Respiratory: The patient denies tuberculosis, denies pneumonia, denies frequent cough, denies pulmonary embolism, denies shortness of breath, and denies coughing up blood. Gastrointestinal: The patient denies difficulty swallowing, NOTES acid reflux, denies ulcers, denies vomiting, denies jaundice/hepatitis, NOTES gallbladder problems, denies black or tarry stools, NOTES hemorrhoids, denies bleeding from rectum, denies diverticulitis, denies constipation, denies diarrhea, denies loss of stool control, and denies hernias. Kidney/Bladder: The patient denies kidney stones, denies urine infections, and denies bloody urine. Skin: The patient denies a history of skin cancer, denies bleeding/changing moles, and denies a history of skin rash. Neurologic: The patient denies a history of epilepsy/convulsions, denies headaches, denies head/spinal injuries, and denies stroke/TIA. Psychiatric: The patient denies psychiatric medications, denies depression, and denies voices, denies substance abuse. Endocrine: The patient denies thyroid disorders, denies diabetes, and denies hormonal problems. Hematologic: The patient denies a history of bruising, denies bleeding, and denies anemia, denies blood clots. Infections: The patient denies a history of measles and mumps, denies rheumatic fever, and denies sexually transmitted diseases. Musculoskeletal: has chronic LBP, denies sciatica, denies knee/foot trouble, denies arthritis, or denies gout. When was patient's last Mammogram screening? N/A Last Colonoscopy: N/a Berry Yuan LPN ? ? PHYSICAL EXAMINATION: General: The patient is 35 year old female, well nourished, well hydrated in no acute distress. The patient is oriented to time, place, and person. VITALS: Pulse 80, temperature 36.3 ?C (97.4 ?F), temperature source Temporal Artery, Ht: 5'4 weight 94.3 kg (208 lb), last menstrual period 12/24/2019, SpO2 95 %, currently . Body mass index is 35.08 kg/m?. ? Head ? Normocephalic. EOM intact with sclera clear and no icterus noted. Neck - supple with no jugular venous distention noted. Trachea is midline. Lungs ? clear to auscultation. Normal breath sounds. No rales/rhonchi/wheezing noted. No labored breathing noted, such as retractions. No cough heard. Heart ? normal S1 and S2 auscultated. No rubs/clicks/murmurs noted. Regular rate. Abdomen ? soft but tender in the RUQ and epigastrium no peritoneal signs noted. Normal bowel sounds. Extremities ? no calf tenderness noted. No pitting edema noted. Skin ? normal skin integrity. Neurological ? gait normal, no focal deficits noted. Psych ? calm and appropriate RADIOLOGIC STUDIES: As Noted IMPRESSION: RUQ abdominal pain, cholelithiasis ? PLAN: I have discussed the above with the patient and her who is present with her. I have reviewed the records from [facility]. I have offered laparoscopic cholecystectomy, possible cholangiograms I have explained the procedure to the patient. I have counseled the patient as to the risks of the procedure, including but not limited to: infection, bleeding, injury to any blood vessels/nerves, scar tissue, injury to any intrabdominal organs, injury to bowel/bladder, injury to the common bile duct/biliary tree, bile leakage, intraabdominal abscess/bleeding, hernias at incisional sites, wound infections, complications of anesthesia, etc. ? the patient understands. ? The patient was offered a surgery/procedure at a [facility] facility. The provider and patient have discussed in detail the risk of exposure to and/or potential harm posed by the COVID-19 virus with having a surgery/procedure at this time versus the risk of? delaying the surgery/procedure. It is not possible to know either the risk of delaying the surgery or procedure or chance of getting an infection with perfect accuracy, but a joint decision was made between the patient and the provider ?to proceed at this time with the scheduled surgery/procedure. I have answered all questions to the patient?s satisfaction and the patient has no further questions. The patient wishes to proceed. I have answered all questions to the patient?s satisfaction and the patient has no further questions. . Diagnoses: (R10.11) Right upper quadrant pain (primary encounter diagnosis) (K80.20) Calculus of gallbladder without cholecystitis without obstruction Return to Clinic: The patient is instructed to follow-up with me after the procedure. ? Keara Keith MD
[2020-11-07] VITALS (9 sets, daily range): BP systolic 130–164; BP diastolic 79–110; PULSE 58–70; RESP 16–18; TEMP 36.1–36.7; O2SAT 97–100; BMI 35.4
[2020-11-07 13:32] LABS: Internal QC Validated? YES +Cl - CLEAR BKGD
[2020-11-07 13:35] LABS: Pregnancy, Urine Negative Negative
[2020-11-07] MEDS: Lactated Ringers 1,000 ML 75 ML IV (13:56)
--- NOTE | 2020-11-07 14:05 | GALL_PTH ---
PATIENT: KINA BENITEZ [place] [facility] [place][id number] AGE/SX: 35/F ROOM: RE11/07/[address]: Dr. Keara Keith MD : 1985 BED: DIS: 11/07/2020 SPEC #: [id number] RECD: 11/08/20 07:28 STATUS: HEBER REFranc #: [id number] MITCHEL: 11/07/20 14:[address]: Keara Keith DEPT: SURGICAL PATHOLOGY RECD BY: Adele Prasad ENTERED: 11/08/20 07:39 SP TYPE: ARELIS CORLEY DR: Dr. Berry Venegas MD Tissues: Gallbladder, NOS Procedures: Surgery Specimen Level III HEADER OPERATION: Laparoscopic cholecystectomy with IOC PRE-OP DIAGNOSIS: RUQ abdominal pain, cholelithiasis TISSUE SUBMITTED: Gallbladder MICROSCOPIC DIAGNOSIS Gallbladder, cholecystectomy: Chronic cholecystitis and cholelithiasis. AM:jacqueline 11/09/2020 MICROSCOPIC DESCRIPTION Slides are reviewed. GROSS DESCRIPTION Received is one container labeled with the patient's name and designated gallbladder. The specimen consists of a gallbladder measuring 8.5 cm in length and up to 2.5 cm in diameter. The external surface is pink-hernández, smooth and glistening for the most part. Focally it is granular, hemorrhagic and contains cautery artifact. The gallbladder contains thick, greenish-yellow mucoid bile and multiple mulberry greenish-yellow stones embedding in the thick mucoid bile measuring in aggregate 3 x 3 x 0.5 cm and 0.2 to 0.3 cm in greatest dimension. The mucosa also shows several yellowish streaks consistent with cholesterolosis. The mucosa is bile-stained and without any mass lesions. The gallbladder wall measures up to 0.3 cm in thickness. Tip Cutter sections from the gallbladder and the cystic duct are submitted in one cassette. / SJ:jacqueline 11/08/20 TC:3 CPT: 50788
--- NOTE | 2020-11-07 14:05 | RAD_ITS ---
CLINICAL HISTORY: Female, 35 years old. PROCEDURE: CHOLANGIOGRAM - 1 view CONSENT: SEDATION: This examination was done in the OR. Contrast was injected into the biliary system there is excellent delineation of the intrahepatic, common hepatic and common bile duct with contrast. No filling defects is seen and there is free spillage of contrast into the duodenum.) RAD/Cholangiogram/ O R,Initial IMPRESSION: Negative study Electronically Signed: Gilles Worley, at 9:14 EDT Tel , Service support ,
--- NOTE | 2020-11-07 15:28 | PCM.OPRPT ---
Report of Operation Date of Procedure: 11/07/20 Pre-Operative Diagnosis: RUQ abdominal pain, cholelithiasis Post-Operative Diagnosis: same, acute cholecystitis also Surgery/Procedure Performed:: laparoscopic cholecystectomy with intraoperative cholangiograms Description of Surgical Findings:: normal IOC, acute cholecystitis with slightly edematous gallbladder wall Surgeon: Keara Keith computer hardware developer: Asael Jenkins Type of Anesthesia: General Specimen's removed: gallbladder and contents Estimated Blood Loss (mL): < 10 ml Fluids Replaced: 1200 ml RL Description of Procedure: After informed consent was given, the patient was brought to the Operating Room. Appropriate time out protocol was followed. The patient was placed in the supine position. The patient was then placed under general endotracheal anesthesia by the anesthesia provider. The abdomen was then prepped with a sterile surgical skin preparation and sterile surgical drapes were placed. The infraumbilical skin fold was grasped with penetrating clamps and the skin and subcutaneous tissues were infiltrated with 0.25% marcaine with epinephrine. A skin incision was then made with a 15 blade scalpel. The anterior abdominal wall was elevated and a Veress needle was carefully inserted into the intraabdominal cavity. It was checked to be in the proper position with a normal saline drop test. A CO2 pneumoperitoneum was then created. Once this was achieved, then the Veress needle was removed and an 11mm trocar was placed in its stead. A 10mm laparoscope was then inserted into the trocar and careful attention was directed to the intraabdominal contents. There was no evidence of injury to any intraabdominal organs from insertion of the Veress needle or the trocar. Under direct visualization, a 5mm subxiphoid trocar and two lateral 5mm right subcostal trocars were placed. The skin and subcutaneous tissues at these sites were infiltrated with 0.25% marcaine with epinephrine prior to placement of these trocars. Attention was then directed to the right upper quadrant of the abdomen. Graspers were placed in the lateral trocars to grasp the distal aspect of the gallbladder and direct it cephalad and to grasp the gallbladder at Coronado?s pouch and direct it laterally. Dissection then began on the proximal gallbladder continuing down to the area of the triangle of Calot to bluntly dissect out the cystic duct. The neck of the gallbladder was identified and blunt dissection continued to dissect out a segment of the cystic duct. A clip was then placed on the neck of the gallbladder. A small ductotomy was then made. A Ranfac catheter was brought in through a separate skin incision and placed into the cystic duct. An intraoperative cholangiogram was performed under fluoroscopy. The xray revealed no lesions in the common bile duct, arborization of the biliary tree, and good flow into the duodenum. The Ranfac catheter was then removed and two clips were placed proximal to the ductotomy and the cystic duct was then transected. The cystic artery was visualized and bluntly isolated and then two clips were placed proximally and one clip distally and then it was transected between the proximal and distal clips. The gallbladder was then from the liver bed using electrocautery. Once from the liver bed, it was brought out via the umbilical port in an Endobag. It was then forwarded to pathology for analysis. The liver bed was carefully examined. There was no evidence of bile leakage or bleeding. The cystic duct stump and cystic artery stump had their clips intact and there was no evidence of bile leakage or bleeding. The remainder of the abdomen was grossly normal. The CO2 was released and all trocars removed intact. The periumbilical fascia was approximated with a [id number] 0 vicryl suture. All skin incision were closed with 4-0 monocryl in a subdermal fashion. Cavilol and Steristrips were used to reinforce the skin closure. Sterile dressings were applied to all wounds. Sponge, needle and instrument count was verified and correct at time of skin closure. The patient was extubated and brought to the Recovery Room in stable condition. Complications none noted Admit VTE Documentation VTE Present on Admission: Yes VTE Mechan Device Prophylaxis: SCD's
--- NOTE | 2020-11-07 15:50 | EX.PCM.DISCH ---
Discharge Instructions Follow Up Care Test Results: Test results from this visit will be discussed in further detail at your follow-up appointment, if applicable. Discharge Plan Admission Attending Provider: Keara Keith Primary Care Provider: Berry Venegas Instructions Additional Instructions / Restrictions: Recommended pain control regimen - May take 600 mg ibuprofen (Motrin) and then in 3-4 hours, may take 650 mg acetaminophen (Tylenol), then in 3-4 hours may take 600 mg ibuprofen, then in 3-4 hours may take 650 mg acetaminophen and so on for 2-3 days May take narcotic pain medication for pain that is not controlled by above and at night for comfort through the night Leave dressings in place May shower, do not scrub in the areas of the dressings as they may unravel. If they become overly soiled you may remove them but leave incision site open to air. May take shower, cover drain site with towel or other such covering to prevent from getting overly wet Do not soak - no tub baths/swimming Ice applied to areas of discomfort may help No lifting/pushing/pulling greater than 20 pounds for two weeks. Regular diet as tolerated, drink plenty of fluids. Avoid carbonated beverages for a few days as this will cause abdominal bloating and thus discomfort after our surgery. Please call my office for an appointment to see me in 1-2 weeks. Office number is If any questions, please call my office at and ask the dividing machine operator helper for the general surgery nurses desk Discharge Orders/Prescriptions Prescriptions: No Action vit no.[id number] 1 EACH tablet 1 tab PO DAILY RF: 0 ferrous sulfate 325 mg (65 mg iron) Tablet 325 mg PO DAILY RF: 0 oxycodone 5 mg capsule 5 mg PO PRN PRN (Reason: Pain) RF: 0 Other Ambulatory Orders: 12 Lead EKG (Routine) Timeframe: [id number] Facility: [facility] - Location: Cardiovascular Services Ordered By: Dr. Qasim Estrada Referrals / Follow Up: Berry Venegas MD [Primary Care Provider] - Disposition Disposition (needs filled in before D/C Order can be placed): Home, Self Care
--- NOTE | 2020-11-10 13:10 | EKG12_ITS ---
Test Reason : PRE OP Blood Pressure : / mmHG Vent. Rate : 061 BPM Atrial Rate : 061 BPM P-R Int : 136 ms QRS Dur : 088 ms QT Int : 432 ms P-R-T Axes : 037 048 041 degrees QTc Int : 434 ms Normal sinus rhythm Normal ECG When compared with ECG of 02-NOV-2020 13:42, No significant change was found Confirmed by MATTHEW HYATT, ERIKA ([id number]), book editor JULIANA RIOS ([id number]) on 11/10/2020 1:11:41 PM Referred By: Keara Keith Confirmed By:ERIKA CASTRO MD
== END 2020-11-07 18:18 | disposition home or self-care (01) ==
LOC: SDC 12:39 → AC 12:40
PROVIDERS: Anesthesiology; PCP Family Medicine; Referring Provider Surgery; Visit Provider Surgery
PROC: (CPT 47610; principal; 2020-11-07 13:45)
DX: K80.10 Calculus of gallbladder with chronic cholecystitis without obstruction (principal); J45.909 Unspecified asthma, uncomplicated
CPT/HCPCS: 00790; 47563; 74300; 76000; 81025; 87426; 88304; 93005; J7120; J2405